=== PATIENT | female | born 1940 ===

== ENCOUNTER → 2019-02-11 | Emergency (ER) | payer OTHER ==
[~2019-02-11] VITALS: Ht 160 cm; Wt 62.6 kg
[~2019-02-11] MED LIST: AMOXICILLIN500 MG PO; ATENOLOL25 MG; CALCIO; HYDROCHLOROTHIA25 MG PO; INDAPAMIDE 1.25 MG; LOSARTAN POTASS50 MG; MEDROL4 MG PO; METROPOLOL 25MG; MULTIVITAMIN; ORASEP SPRAY30 ML MM; PEPCID40 MG PO; PRINIVIL5 MG PO; TUSNEL LIQUID178 ML PO; VIT C; ZYNCOF 20-400120 ML PO
== END | disposition left against medical advice (07) ==
LOC: ER 20:39
DX: Z53.20 Procedure and treatment not carried out because of patient's decision for unspecified reasons (principal)

== ENCOUNTER 2019-12-25 00:47 | Emergency (ER) | payer OTHER ==
[~2019-12-25] VITALS: Ht 160 cm; Wt 62.6 kg
== END 2019-12-25 07:29 | disposition home or self-care (01) ==
LOC: ER 00:47
DX: I10 Essential (primary) hypertension (principal)

== ENCOUNTER 2020-09-06 15:16 | Emergency (ER) | payer OTHER ==
[~2020-09-06] VITALS: Ht 160 cm; Wt 62.6 kg
[2020-09-06] MEDS ORDERED: DIOVAN320 MG PO (16:11)
== END 2020-09-06 19:01 | disposition home or self-care (01) ==
LOC: ER 15:16
DX: R53.1 Weakness (principal); Z03.818 Encounter for observation for suspected exposure to other biological agents ruled out

== ENCOUNTER 2020-10-21 09:39 | Emergency (ER) | payer OTHER ==
[~2020-10-21] VITALS: Ht 160 cm; Wt 62.6 kg
[~2020-10-21 09:39] MED LIST changes: +DIOVAN320 MG PO
== END 2020-10-21 11:11 | disposition home or self-care (01) ==
LOC: ER 09:39
DX: N39.0 Urinary tract infection, site not specified (principal)

== ENCOUNTER 2020-11-25 11:18 | Emergency (ER) | payer OTHER ==
[~2020-11-25] VITALS: Ht 162.6 cm; Wt 62.6 kg
== END 2020-11-25 15:43 | disposition home or self-care (01) ==
LOC: ER 11:18
DX: G44.89 Other headache syndrome (principal); M62.838 Other muscle spasm; M54.2 Cervicalgia

== ENCOUNTER 2021-11-15 11:32 | Emergency (ER) | payer OTHER ==
[~2021-11-15] VITALS: Ht 160 cm; Wt 63.0 kg
== END 2021-11-15 14:31 | disposition home or self-care (01) ==
LOC: ER 11:32
DX: U07.1 COVID-19 (principal); B34.9 Viral infection, unspecified; R53.81 Other malaise; R09.81 Nasal congestion

== ENCOUNTER 2021-11-18 20:43 | Emergency (ER) | payer OTHER ==
[~2021-11-18] VITALS: Ht 162.6 cm; Wt 62.6 kg
[2021-11-19] MEDS ORDERED: [UNRECOGNIZED DRUG - OTHER] PO (13:34)
== END 2021-11-19 13:40 | disposition home or self-care (01) ==
LOC: ER 20:43
DX: B34.9 Viral infection, unspecified (principal); E87.1 Hypo-osmolality and hyponatremia; J06.9 Acute upper respiratory infection, unspecified; Z11.52 Encounter for screening for COVID-19

== ENCOUNTER 2021-11-21 16:44 | Emergency (ER) | payer OTHER ==
[~2021-11-21] VITALS: Ht 160 cm; Wt 62.1 kg
[~2021-11-21 16:44] MED LIST changes: +[UNRECOGNIZED DRUG - OTHER] PO
== END 2021-11-21 19:35 | disposition home or self-care (01) ==
LOC: ER 16:44
DX: R07.89 Other chest pain (principal); F41.8 Other specified anxiety disorders